=== PATIENT | male | born 1975 | race Caucasian/White ===

== ENCOUNTER 2016-12-15 19:35 | Emergency (ER) | payer OTHER ==
[~2016-12-15] VITALS: Ht 165.1 cm; Wt 68.0 kg
[~2016-12-15 19:35] MED LIST: CLINDAMYCIN HY300 MG PO; CYCLOBENZAPRINE10 M1 PO; ESCITALOPRAM10 MG PO; FLOMAX(MONOGRA0.4 MG PO; MONTELUKAST SOD10 MG PO; PERCOCET 325 MG1 TA2 PO; PERCOCET 5-3251 EACH PO; PRAVASTATIN SOD40 MG PO; PREDNISONE10 MG PO
--- NOTE | 2016-12-15 21:09 | ED GENERAL ADULT ---
History of Present Illness General Chief Complaint: General Adult Stated Complaint: MUSCULAR PAIN IN CHEST AREA Source: patient Exam Limitations: no limitations Vital Signs & Intake/Output Vital Signs & Intake/Output Vital Signs Date Time Temp Pulse Resp B/P Pulse O2 O2 Flow FiO2 Ox Delivery Rate 12/15 2202 97.2 69 20 129/72 96 Room Air 12/15 1941 96.8 73 18 160/79 98 Room Air ED Intake and Output 12/16 0000 12/15 1200 Intake Total Output Total Balance Patient 150 lb Weight Allergies Coded Allergies: MDX - Penicillin (HAD A RED HEAD AND PRESSURE WHEN HE WAS 5 IN [facility] 04/20/15 ) Triage Note: PT TO ED C/O ACING CHEST WALL PAIN "IN THE BONE" OFF AND ON FOR 3 DAYS. NO CHANGE WITH INSPIRATION. PAIN IS BETTER WITH PALPATION "IT'S LIKE RUBBING A MUSCLE" DENIES N/V/DIZZINESS/SOB. IS UNAWARE OF ANY INJURY. RECENTLY STARTED AN [employer]ID [employer]PERINT[employer]ENT Triage Nurses Notes Reviewed? yes Onset: Gradual Duration: day(s): (4) Timing: no prior history Injury Environment: home Severity: mild Severity Numbers: 6 No Modifying Factors: none HPI: Patient is a 41-year-old male presenting to the emergency department with chief complaint of bilateral chest pain that's been intermittent for the past 4 days. Patient reports that he's had 2 episodes per night every night. Symptoms usually last about an hour so and then resolved. Patient also reports that he's had cold sweats at night and around the same time. Denies any coughing. No weight loss. Denies any travel. No sick contacts. Denies nausea or vomiting. No radiation of the pain. Reports the pain is soothed with warm compresses and rubbing the area. Denies any trauma. No recent heavy lifting. No history of similar symptoms he denies any family history of cardiac issues. Currently not having the pain. (VIRGEN MATTHEWS) Reconcile Medications Escitalopram Oxalate 10 MG TABLET 1 TAB PO QPM MENTAL HEALTH (Reported) Meloxicam (Mobic) 15 MG TABLET 1 TAB PO DAILY PRN pain Montelukast Sodium 10 MG TABLET 1 TAB PO QPM ALLERGIES (Reported) Pantoprazole Sodium 40 MG TABLET.DR 40 MG PO DAILY STOMACH HEALTH (Reported) Pravastatin Sodium 40 MG TABLET 1 TAB PO QPM CHOLESTEROL (Reported) (JOSE RIZZO MD) Past History Travel History Traveled to [place] past 21 day No Medical History Any Pertinent Medical History? see below for history Neurological: BRAIN TUMOR EENT: [place] Cardiovascular: hyperlipidemia Gastrointestinal: GERD Renal: nephrolithiasis Psychiatric: anxiety Blood Disorders: NONE Cancer(s): NONE Surgical History Surgical History: non-contributory Psychosocial History What is your primary language Ch[place] Tobacco Use: Never used ETOH Use: denies use Illicit Drug Use: denies illicit drug use Family History Hx Contributory? No (VIRGEN MATTHEWS) Review of Systems Review of Systems Constitutional: Reports: see HPI. Comments Review of systems: See HPI, All other systems negative. Constitutional, no weight loss HEENT: No visual changes no sore throat no congestion Cardiovascular: No palpitation , orthopnea or ankle swelling Skin, no jaundice no rashes Respiratory: No dyspnea cough sputum or hemoptysis GI: No nausea no vomiting : No dysuria No hematuria Muscle skeletal: no back pain, no neck pain, Neurologic: No numbness no confusion Psych: No stress anxiety or depression,. Heme/endocrine: No bruising no bleeding no polyuria or polydipsia Immunology: No splenectomy or history of AIDS (VIRGEN MATTHEWS) Physical Exam Physical Exam General Appearance: well developed/nourished, no apparent distress, alert, awake , comfortable Comments: Well-developed well-nourished person in no acute distress HEENT: Pupils equally round and reactive to light and accommodation. Nose is atraumatic. Hearing aid in place on the left ear. Neck: Normal inspection Back: Nontender Cardiovascular: Regular rate and rhythms no murmurs rubs or gallops, normal JVP Respiratory: Chest nontender. No respiratory distress.breath sounds clear to auscultation bilaterally Abdomen: Soft, nontender nondistended, no appreciable organomegaly. Normal bowel sounds. No ascites Extremity: No edema Neuro: Alert oriented x3 Skin: No appreciable rash on exposed skin, skin is warm and dry. Psych: Mood and affect is normal, memory and judgment is normal. Core Measures ACS in differential dx? Yes CVA/TIA Diagnosis: No Severe Sepsis Present: No Septic Shock Present: No (VIRGEN MATTHEWS) Progress Differential Diagnoses I considered the following diagnoses in my evaluation of the patient: Nonspecific chest pain, contusion, muscle strain, muscle spasm, pneumonia, ACS Plan of Care: Orders Procedure Date/time Status Telemetry/Dining Services Director 12/15 2106 Active TROPONIN LEVEL 12/15 2106 Complete COMPREHENSIVE METABOLIC PANEL 12/15 2106 Complete CBC WITHOUT DIFFERENTIAL 12/15 2106 Complete EKG 12/15 2106 Active Laboratory Tests 12/15/162128: Anion Gap 11, Estimated GFR > 60, BUN/Creatinine Ratio 18.9, Glucose 84, Calcium 10.6 H, Total Bilirubin 0.7, AST 29, ALT 42, Alkaline Phosphatase 58, Troponin I < 0.01, Total Protein 7.6, Albumin 4.9, Globulin 2.7, Albumin/Globulin Ratio 1.8, CBC w Diff NO MAN DIFF REQ, RBC 5.42, MCV 83.1, MCH 27.7, RDW 13.3, MPV 8.4 , Gran % 48.6, Lymphocytes % 35.4, Monocytes % 11.3 H, Eosinophils % 4.1, Basophils % 0.6, Absolute Granulocytes 3.2, Absolute Lymphocytes 2.3, Absolute Monocytes 0.7 H, Absolute Eosinophils 0.3, Absolute Basophils 0, PUBS MCHC 33.4 Diagnostic Imaging: Viewed by Me: Radiology Read. Discussed w/RAD: Radiology Read. Radiology Impression: PATIENT: SCOTT AG PRESENT AGE: 41 PATIENT ACCOUNT NO: [id number] : 75 LOCATION: [facility] ORDERING PHYSICIAN: VIRGEN BARILLAS SERVICE DATE: 12/15/16-2107 EXAM TYPE: RAD - XRY-CHEST XRAY, PA AND LATERAL EXAMINATION: XR CHEST CLINICAL INFORMATION: Cardiomegaly. Chest pain COMPARISON: 09/05/13 TECHNIQUE: 2 views of the chest were obtained. FINDINGS: Trace rotation toward the left. The cardiothoracic ratio is 11/29 which is relatively small. There is no mediastinal or hilar mass. The vasculature is not engorged. There is no consolidation or edema. The visualized pleural margins are within normal limits. Mild convex right thoracolumbar curve. Portions of a catheter or device project over the dorsal soft tissues on the right IMPRESSION: No pneumonia or edema. The heart is not enlarged. Initial ED EKG: NSR Prior EKG: unchanged Comments: atypical chest pain, pt will follow up with pcp. stil pain free. neg troponin. (TAVON BARILLAS,VIRGEN) Departure Departure Time of Disposition: 2213 Disposition: HOME OR SELF CARE Condition: Stable Clinical Impression Primary Impression: Atypical chest pain Referrals: RACHEL CARRIZALES,MALICK GARCIA (PCP/Family) Additional Instructions: Follow-up with your primary care physician call to make an appointment. Take anti-inflammatories as directed. Return for worsening symptoms or concerns. Departure Forms: Customer Survey General Discharge Information Prescriptions: Current Visit Scripts Meloxicam (Mobic) 1 TAB PO DAILY PRN pain #10 TAB (VIRGEN MATTHEWS) PA/STOCKBROKER Co-Sign Statement Statement: ED Attending supervision documentation- [] I saw and evaluated the patient. I have also reviewed all the pertinent lab results and diagnostic results. I agree with the findings and the plan of care as documented in the PA's/STOCKBROKER's documentation. x I have reviewed the ED Record and agree with the PA's/STOCKBROKER's documentation. [] Additions or exceptions (if any) to the PAs/STOCKBROKER's note and plan are summarized below: [] (SO CARRIZALES,JOSE) Critical Care Note Critical Care Note Critical Care Time: non-applicable (VIRGEN MATTHEWS)
[2016-12-15 21:39] LABS: ABSOLUTE BASOPHIL COUNT 0 /CUMM (0.0-0.2); ABSOLUTE EOSINOPHIL COUNT 0.3 /CUMM (0.0-0.7); ABSOLUTE GRANULOCYTE CT 3.2 /CUMM (1.4-6.5); ABSOLUTE LYMPH COUNT 2.3 /CUMM (1.2-3.4); ABSOLUTE MONOCYTE COUNT 0.7 /CUMM (0.10-0.60); BASOPHIL % 0.6 % (0.0-2.0); EOSINOPHIL % 4.1 % (0-5); GRANULOCYTE % 48.6 % (42.2-75.2); MEAN CORPUSCULAR HGB 27.7 PG (27.0-31.0); MEAN CORPUSCULAR HGB CONC 33.4 G/DL (33.0-37.0); MEAN CORPUSCULAR VOLUME 83.1 FL (80.0-94.0); MEAN PLATELET VOLUME 8.4 FL (7.4-10.4); PLATELET COUNT 278 /CUMM (130-400); RBC DISTRIBUTION WIDTH 13.3 % (11.5-14.5); RED BLOOD CELL CT 5.42 /CUMM (4.70-6.10); WHITE BLOOD CELL COUNT 6.6 /CUMM (4.8-10.8)
--- NOTE | 2016-12-15 21:44 | RADIOLOGY REPORT ---
EXAMINATION: XR CHEST CLINICAL INFORMATION: Cardiomegaly. Chest pain COMPARISON: 09/05/13 TECHNIQUE: 2 views of the chest were obtained. FINDINGS: Trace rotation toward the left. The cardiothoracic ratio is 11/29 which is relatively small. There is no mediastinal or hilar mass. The vasculature is not engorged. There is no consolidation or edema. The visualized pleural margins are within normal limits. Mild convex right thoracolumbar curve. Portions of a catheter or device project over the dorsal soft tissues on the right IMPRESSION: No pneumonia or edema. The heart is not enlarged.
[2016-12-15 22:03] VITALS: BP 129/72
[2016-12-15] MEDS ORDERED: MOBIC15 M1 PO (22:15)
[2016-12-15] MEDS ORDERED: PANTOPRAZOLE SO40 M1 PO (22:28)
== END 2016-12-15 22:29 ==
LOC: ERH 19:35
PROVIDERS: Physician Assistant
DX: R07.89 Other chest pain (principal)
CPT/HCPCS: 93005; 93010